=== PATIENT | female | born 1970 | race Caucasian/White ===

== ENCOUNTER 2020-05-15 04:09 | Outpatient (CLI) | payer BC, SELFPAY ==
--- NOTE | 2020-05-15 07:00 | DI.US_ITS ---
EXAM: US PELVIS TRANSVAGINAL CLINICAL HISTORY: hx of fibroid. checking for interval change, IUD, D25.9, Z97.5. TECHNIQUE: Transabdominal and transvaginal pelvic ultrasound was performed using standard protocol. COMPARISON: No exams were available for comparison FINDINGS: KIDNEYS: Kidneys are symmetric in size. No evidence of renal calculi. No evidence of hydronephrosis. No renal mass or cyst identified. UTERUS: Position: Anteverted. Size: 8.3 long by 5.2 AP by 6.4 transverse cm Endometrium: Within normal limits. Cm. Normal for patient's menstrual status. The patient has an IUD which is in good position. Myometrium: Multiple myometrial masses are present consistent with uterine fibroids. The largest gary sures 5 x 4.1 x 3.4 cm. Cervix: Unremarkable. OVARIES: Right: 2 x 1.1 x 0.9 cm Cyst or mass: None. Left: 2.5 x 1.8 x 1.8 cm Cyst or mass: Small follicular cyst. DOPPLER: Color: Symmetric and uniform flow to both ovaries. No hyperemia. Duplex: Normal ovarian arterial waveforms visualized. CUL-DE-SAC: Free fluid: None. Other: None. IMPRESSION: 1. Normal sonographic appearance of the kidneys. 2. Multiple uterine fibroids. 3. IUD in good position. 4. Unremarkable bilateral ovaries. DATA REPOSITORY:
== END 2020-05-15 04:29 ==
PROVIDERS: PCP Nurse Practitioner Family; Visit Provider Obstetrics & Gynecology Gynecology
DX: D25.9 Leiomyoma of uterus, unspecified (principal); Z97.5 Presence of (intrauterine) contraceptive device
CPT/HCPCS: 76830; 76856

== ENCOUNTER 2023-02-07 10:51 | Outpatient (REF) | payer BC, SELFPAY ==
--- NOTE | 2023-02-07 10:00 | PAPFT_PTH ---
PATIENT: Lisandro LOC: [facility] U#:[id number] AGE/SX: 52/F ROOM: RE02/07/[address]: Elisabeth Cooley DO : 1970 BED: DIS: 02/07/2023 SPEC #: [id number] RECD: 02/07/23 17:13 STATUS: ROSALINDA REQ #: [id number] KEENA: 02/07/23 10:[address]: Elisabeth Cooley DEPT: ON LICENSE OF [facility] Cytology RECD BY: Rena Lezama ENTERED: 02/07/23 17:13 SP TYPE: PAPFT OTHR DR: Debby Jesus Tissues: 1 - CX/ENDOCX FOR PAP SMEARS Procedures: PAP THIN PREP/UVM Screening HPV DNA PROBE Comments: [id number]
== END 2023-02-07 10:52 | disposition home or self-care (01) ==
LOC: LBN 10:51
PROVIDERS: PCP Nurse Practitioner Family; Visit Provider Obstetrics & Gynecology
DX: Z12.4 Encounter for screening for malignant neoplasm of cervix (principal); Z11.51 Encounter for screening for human papillomavirus (HPV)
CPT/HCPCS: 88142; 87624

== ENCOUNTER 2025-04-03 01:18 | Outpatient (CLI) | payer BC, SELFPAY ==
--- NOTE | 2025-04-03 12:18 | DI.MAMMO_ITS ---
Exam(s) MAMMO SCREENING EXAM: MAMMO SCREENING CLINICAL HISTORY: screening TECHNIQUE: Mammograms were interpreted according to the usual protocol including computer analysis with CAD system, tomosynthesis and C-view imaging. COMPARISON: 2017 through 2023 FINDINGS: The breasts are composed of scattered fibroglandular densities, Breast Density category B. No suspicious masses or suspicious microcalcifications are seen. No skin thickening or abnormal axillary lymph nodes are seen. There has been no significant change from prior exams. IMPRESSION: BI-RADS Category 1, Negative mammogram Yearly screening mammography is recommended. Breast Density - Category B - There are scattered areas of fibroglandular density. Breast density Category C or D implies that the patient has dense breast tissue. Dense breast tissue can make it harder to find cancer on a mammogram. Dense breast tissue is also associated with an increased risk of breast cancer. This information about the result of the mammogram report was provided to the patient to raise their awareness. Use this report when you speak with the patient about their risks for breast cancer, which includes their family history. At that time, you may recommend additional screening tests (Ultrasound or MRI) as these tests may add significant information. A negative radiographic report should not delay biopsy if a dominant or clinically suspicious mass is present. Up to ten percent of cancers are not identified on mammography. A negative report may reinforce clinical impression. Adenosis and dense breasts may obscure an underlying neoplasm. False positive reports average 6 to 10%. Patient will receive a letter notifying them of these results.
== END 2025-04-03 01:38 ==
LOC: DI 01:19
PROVIDERS: PCP Nurse Practitioner Family; Visit Provider Obstetrics & Gynecology
DX: Z12.31 Encounter for screening mammogram for malignant neoplasm of breast (principal); D25.9 Leiomyoma of uterus, unspecified; R92.323 Mammographic fibroglandular density, bilateral breasts
CPT/HCPCS: 77063; 77067

== ENCOUNTER 2025-04-10 07:08 | Emergency (ER) | payer BC, SELFPAY ==
[2025-04-10 07:12] VITALS: BP 141/106; PULSE 92; RESP 18; TEMP 36.5; O2SAT 96
[2025-04-10 07:15] VITALS: BP 141/106; PULSE 92; RESP 18; TEMP 36.5; O2SAT 96
--- NOTE | 2025-04-10 07:34 | DI.RAD_ITS ---
Exam(s) XR CHEST 2V PA LATERAL EXAM: XR CHEST 2V PA LATERAL CLINICAL HISTORY: cough. TECHNIQUE: 2D digital imaging was performed. COMPARISON: No exams were available for comparison FINDINGS: 2 views: Heart size is normal. The mediastinum is not widened. Lungs are clear. No infiltrates nor pleural effusions. IMPRESSION: No acute pulmonary findings. DATA REPOSITORY: RADIATION DOSE DELIVERED:
--- NOTE | 2025-04-10 07:55 | ED.GENADUL_ITS ---
Discharge Plan Disposition Patient Disposition: Eloped Condition: Stable Discharge Details Clinical Impression: Sinusitis, acute, URI (upper respiratory infection) Primary Care Provider: Debby Jesus ED Provider: Valentin Goddard Home Meds and New Rx's Prescriptions: New Flonase Sensimist 27.5 mcg/actuation spray,suspension 2 spray intranasal DAILY 7 Days Qty: 5.9 0RF Rx Instructions: into each nostril amoxicillin 500 mg capsule 500 mg PO TID Qty: 21 0RF Continued Alive Calcium-Vitamin D3 260 mg calcium- 25 mcg-50 mg tablet,chewable 1 tab PO DAILY albuterol sulfate 90 mcg/actuation HFA aerosol inhaler 2 puff IH Q6H PRN Discharge Instructions Instructions: Sinusitis, Adult ED, Upper Respiratory Infection ED Additional Instructions: Chest x-ray was performed today and did not reveal any acute pulmonary process. Viral testing including influenza, COVID and RSV testing was performed today and was negative. Please drink plenty of fluid and allow for plenty of rest. Please take ibuprofen 600 mg by mouth every 6-8 hours as needed for pain for the next few days. Perform nasal saline sprays 3 times daily. Use steroid nasal spray as prescribed over the next week if symptoms persist. Should pain and congestion persist over the next 3 days, start antibiotic and take full course as prescribed. If symptoms are significantly improving over the next 3 days, do not start antibiotic. Please follow-up with your primary care physician. Return to the emergency department immediately for any worsening or new concerning symptoms. Stand Alone Forms: Work Release Referrals: Debby Jesus [Primary Care Provider, Medicine] Discharge Data Discharge Date/Time-TO BE ENTERED AT DEPARTURE: 04/10/25 08:29 HPI General Mode of arrival: ambulatory . Date/Time Provider Initiated Documentation: 04/10/25 07:14 . Limitations to Documentation: no limitations . Information obtained by: patient . HPI Narrative: HISTORY OF PRESENT ILLNESS 54-year-old female with 1-week history of nonproductive cough, chills, body aches, headache, and vomiting. Denies fever but reports congestion and cough preventing sleep. Describes pressure behind nose, tickling cough, and constant dripping. Nauseous from drainage and medication. Symptoms began 04/03/2025 with a cold at work, worsened on 04/05/2025 with chills. Slight improvement this week but persistent cough and congestion, worse at night. Suspected fever on 04/09/2025, no thermometer to confirm. No rash or tick bites. 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 Attended wedding and concert two weeks ago. No ear pain or sore throat. Using ice pack for comfort. No relief from Robitussin, NyQuil, coconut seltzer, cough drops, hot tea, and salt water gargle. Related Data Home Medications ?Medication ?Instructions ?Recorded ?Confirmed albuterol sulfate 90 mcg/actuation 2 puff inhalation Q 6H PRN 05/06/20 04/10/25 aerosol inhaler calcium 260 mg (phos,tribasic)-D3 1 tab PO DAILY 03/0604/10/25 25 mcg-herbal 50 mg chewable tablet (Alive Calcium-Vitamin D3) amoxicillin 500 mg capsule 500 mg PO TID #21 caps 03/13 10/05 fluticasone furoate 27.5 2 spray intranasal DAILY 7 d ays 04/10/25 mcg/actuation nasal #5.9 mL spray,suspension (Flonase Sensimist) Previous Rx's ?Medication ?Instructions ?Recorded amoxicillin 500 mg capsule 500 mg PO TID #21 caps 03/13 10/05 fluticasone furoate 27.5 2 spray intranasal DAILY 7 d ays 04/10/25 mcg/actuation nasal #5.9 mL spray,suspension (Flonase Sensimist) Allergies Allergy/AdvReac Type Severity Reaction Status Date / Time No Known Allergies Allergy Verified 04/10/25 07:15 General Stated Complaint: RespSymp KELLEE: 4 Review of Systems All systems reviewed & are unremarkable except as noted in HPI and below Constitutional Constitutional: Reports as per HPI Respiratory Respiratory: Reports as per HPI Exam Const General: cooperative and no acute distress HENMT Ears: external ears normal and TM's normal bilaterally General nose exam: no nasal discharge noted Face and sinus: normal facial exam Mouth: moist mucous membranes Teeth and gingiva: dentition normal Throat: posterior oropharynx normal Eyes Conjunctivae: normal conjunctivae Sclera: normal sclerae Resp Auscultation: clear to auscultation bilaterally, no rales, no rhonchi and no wheezes Cardio Rate: regular rate and not tachycardic Rhythm: regular rhythm GI Palpation: soft, not firm, no guarding, no masses, not rigid and nontender Skin General skin exam: no rashes or lesions noted Neuro General: patient alert, patient awake and tone normal Extrem General: no edema Psych Appearance: grossly normal Mental Status: mental status grossly normal Course Vital Signs Vital signs: Vital Signs Temperature 36.5 C 04/10/25 07:12 Pulse 92 H 04/10/25 07:12 Respiratory Rate 18 04/10/25 07:12 Blood Pressure 141/106 H 04/10/25 07:12 Pulse Oximetry 96 04/10/25 07:12 Temperature 36.5 C 04/10/25 07:15 Temperature Source Temporal Artery Scan 04/10/25 07:15 Pulse 92 H 04/10/25 07:15 Respiratory Rate 18 04/10/25 07:15 Blood Pressure 141/106 H 04/10/25 07:15 Blood Pressure Position Sitting 04/10/25 07:15 Pulse Oximetry 96 04/10/25 07:15 Oxygen Delivery Method Room Air 04/10/25 07:15 Oxygen Flow Rate 0 04/10/25 07:15 Pain Level 10 04/10/25 07:15 Medical Decision Making ASSESSMENT AND PLAN Initial Assessment: 54-year-old female with 1-week history of nonproductive cough, chills, body aches, headache, and vomiting. Likely viral respiratory illness, possibly sinusitis. ED Course: - Vital signs: heart rate 92, respiratory rate 18, saturating 96% on room air, temperature 36.5, blood pressure 141/106. - Chest x-ray shows no pneumonia, pending radiologist confirmation. - Swab tests for COVID-19, influenza, and RSV conducted. -Chest x-ray was interpreted by radiology: No acute pulmonary findings. - COVID, flu, RSV testing Final Assessment: Patient likely has a viral respiratory illness, possibly sinusitis. Chest x-ray shows no pneumonia. Swab tests for COVID-19, influenza, and RSV conducted. Clinical Impression: - Viral respiratory illness vs acute bacterial sinusits Disposition: - Discharge home with advice on rest, NSAIDs, hydration, repositioning, nasal irrigation, intranasal glucocorticoid - Still early in course, however some biphasic component concerning for potential developing bacterial process. Will plan for continued observation and if symptoms persist for >10 days, will provide prescription to start antibiotic - Return if symptoms worsen or persist. - Patient eloped from the emergency room and prior to receiving discharge instructions. Nursing contacted the patient and requested that she return to reviewed discharge instructions and received prescription. Patient did not return by later in the shift. I called the patient again and left a message advising her to return. Prescription for intranasal glucocorticoid was sent to pharmacy. MDM Components Evaluation: - Number of Differential Diagnoses or Management Options: Viral respiratory illness, Sinusitis - Amount and Complexity of Data Reviewed: Vital signs, chest x-ray, swab tests for COVID-19, influenza, and RSV - Risk of Complication and Morbidity or Mortality: Low risk given current presentation and normal chest x-ray This document was written with the assistance of VINAY Cadet. The patient consented to its use. PFSH All Active Problems (Updated 04/10/25 @ 08:23 by Valentin Goddard MD) URI (upper respiratory infection) (Acute) Sinusitis, acute (Acute) Encounter for IUD removal (Acute) Perimenopausal (Acute) Fibroid uterus (Acute) Medical History IUD (intrauterine device) in place Removed 03/06/2025 Social History Smoking/Tobacco Use Status: Never Smoking risk assessment performed?: Yes Alcohol Intake: current Alcohol Intake frequency: holidays/special occasions only Drug use: Never Substance use type: does not use PAWSS Have you Been Recently Intoxicated or Drunk Within the Last 30 days?: No Have you Ever Experienced Previous Episodes of Alcohol Withdrawal?: No Have you ever Experienced Withdrawal Seizures?: No Have you ever Experienced Delirium Tremens(DT)s?: No Have you ever undergone Alcohol Rehabilitation Treatment (i.e, inpt ot outpatient treatment programs)?: No Have you ever Experienced Blackouts?: No Have you ever Combined Alcohol with other Downers within the last 90 days?: No Have you ever Combined Alcohol with any other Substance of Abuse during the last 90 days?: No Result: 0
[2025-04-10 08:04] LABS: COVID-19 PCR Negative (Negative); RSV PCR Negative (Negative)
== END 2025-04-10 08:29 | disposition left against medical advice (07) ==
PROVIDERS: Emergency Provider Student in an Organized Health Care Education/Training Program; PCP Nurse Practitioner Family
DX: J06.9 Acute upper respiratory infection, unspecified (principal); J01.90 Acute sinusitis, unspecified
CPT/HCPCS: 87637; 99283; 71046